=== PATIENT | male | born 1975 | race Hispanic/Latino ===

== ENCOUNTER → 2019-08-14 | Day surgery (SDC) | payer BC ==
[2019-08-10 16:33] LABS: BASOPHILS # (AUTO) 0.1 (0.0-0.1); BASOPHILS % 0.6 % (0.0-1.0); EOSINOPHILS # (AUTO) 0.1 (0.0-0.4); EOSINOPHILS % 1.8 % (0.0-6.0); HEMATOCRIT 44.7 % (38.2-49.6); HEMOGLOBIN 15.3 g/dL (14.0-18.0); LYMPHOCYTES # (AUTO) 2.6 (1.0-3.2); LYMPHOCYTES % 33.2 % (18.0-39.1); MEAN CORPUSCULAR HEMOGLOBIN 28.2 pg (28-32); MEAN CORPUSCULAR HGB CONC 34.2 g/dL (31-35); MEAN CORPUSCULAR VOLUME 82.5 fL (81-99); MONOCYTES # (AUTO) 0.5 (0.2-0.8); NEUTROPHILS # (AUTO) 4.5 (2.1-6.9); PLATELET COUNT 270 x10e3/uL (140-360); RED BLOOD COUNT 5.42 x10e6/uL (4.3-5.7); RED CELL DISTRIBUTION WIDTH 12.8 % (11.7-14.4)
[2019-08-10 16:49] LABS: ANION GAP 14.3 mmol/L (8-16); BLOOD UREA NITROGEN 14 mg/dL (7-26); BUN/CREATININE RATIO 15 (6-25); CALCIUM 9.4 mg/dL (8.4-10.2); CARBON DIOXIDE 28 mmol/L (22-29); CHLORIDE 103 mmol/L (98-107); CREATININE, SERUM 0.95 mg/dL (0.72-1.25); EST GLOMERULAR FILTRATION RATE > 60 ML/MIN (60-); GLUCOSE 97 mg/dL (74-118); POTASSIUM 4.3 mmol/L (3.5-5.1); SODIUM 141 mmol/L (136-145)
--- NOTE | 2019-08-10 17:19 | Diagnostic Imaging Report ---
EXAMINATION: CHEST 2 VIEWS INDICATION: Pre-operative COMPARISON: None FINDINGS: LINES/TUBES:None LUNGS:The lungs are well-inflated. No focal consolidation or pulmonary edema. PLEURA:No pleural effusion or pneumothorax. MEDIASTINUM:The cardiomediastinal silhouette appears normal in size and shape. BONES/SOFT TISSUES:No acute osseous injury. ABDOMEN:No free air under the diaphragm. IMPRESSION: No focal pneumonia or pulmonary edema. Signed by: Ginger Park MD on 08/10/2019 5:17 PM
[~2019-08-14] MED LIST: ACETAMINOPHEN 1000 MG/100 ML IV ONE; ALBUTEROL SULF 0.083% NEB SOLN 3 ML NEB ONE; AMLODIPINE BESYL5 MG PO; BUPIVACAINE HCL 0.5% INJ 30 ML VIAL INJ ONE; CLINDAMYCIN PHOS 900MG/ 50ML 50 ML IV ONE; DEXAMETHASONE SOD PHOS INJ 4 MG/ML VIAL ONE; FENTANYL CITRATE/PF 100MCG/2 ML INJ ONE; FLUTICASONE INH; IBUPROFEN 800MG/ 200ML 200 ML IV ONE; LIDOCAINE HCL 2% LOCAL INJ 5 ML SDV VIAL INJ ONE; LOSARTAN POTASS25 MG PO; MIDAZOLAM HCL 2 MG/2 ML VIAL ONE; MORPHINE SULFATE INJ 10 MG/ML ONE; NEOSTIGMINE 1 MG/ML 10ML VIAL ONE; ONDANSETRON HCL INJ 2MG/ML 2ML 2 MG/ML VIAL ONE; PROPOFOL IV EMULSION 10 MG/ML 20 ML VIAL ONE; SEVOFLURANE INHAL SOLN 250 ML PEN BTL ONE
--- OUTSIDE RECORDS SUMMARY | 2019-08-14 05:45 | XMS REPORT ---
Author Author [facility] Address Unknown Phone Unavailable Care Team Providers Care Civil Attorney Name Role Phone NICK DUFFY Unavailable Unavailable Problems This patient has no known problems. Allergies, Adverse Reactions, Alerts This patient has no known allergies or adverse reactions. Medications This patient has no known medications. Results Test Description Test Time Test Comments Text Results Atomic Results Result Comments CHEST 2 VIEWS 2019-08-10 17:16:00 [place] [address] Patient Name: JEANA ROSE JR MR #: [id number] : 1975 Age/Sex: 44/M Req #: [id number] Adm Physician: Ordered by: NICK DUFFY DPM Report #: [id number] Location: OR Room/Bed: Procedure: [id number] DX/CHEST 2 VIEWS Exam Date: 08/10/19 Exam Time: 1615 REPORT STATUS: Signed EXAMINATION: CHEST 2 VIEWS INDICATION: Pre-operative COMPARISON: None FINDINGS: LINES/TUBES:None LUNGS:The lungs are well-inflated. No focal consolidation or pulmonary edema. PLEURA:No pleural effusion or pneumothorax. MEDIASTINUM:The cardiomediastinal silhouette appears normal in size and shape. BONES/SOFT TISSUES:No acute osseous injury. ABDOMEN:No free air under the diaphragm. IMPRESSION: No focal pneumonia or pulmonary edema. Signed by: Shelly Park MD on 08/10/2019 5:17 PM Dictated By: SHELLY PARK MD 16 Transcribed By: DAR on 08/10/191716 COPY TO: NICK DUFFY DPM
[2019-08-14 12:20] VITALS: BP 150/94
--- NOTE | 2019-08-19 20:29 | Operative Report ---
DATE OF PROCEDURE: 08/14/2019 SURGEON: Preston Zhang DPM ROOM NUMBER: [facility]. 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 TITLE OF THE OPERATION: Triple arthrodesis of the left foot with repair of the posterior tibial tendon, left foot. ANESTHESIA: General endotracheal. HEMOSTASIS: A left thigh tourniquet at 350 mmHg. PROCEDURE IN DETAIL: The patient was taken to the operating room in a mildly sedated state, placed on the operating table in supine position. Following induction of general anesthetic, left lower extremity was elevated to 60 degrees to exsanguinate before inflating the pneumatic thigh tourniquet to 350 mmHg to create hemostasis. Left lower extremity was placed on the operating table prior to performing the following procedure. Procedure #1: Triple arthrodesis of the left foot. The incision was placed along the subtalar joint extending to the talonavicular joint on the medial aspect of the left foot. The incision was deepened via sharp and blunt dissection to the level of the posterior tibial tendon structure, which was noted to be ruptured and significantly hypertrophic. This was reflected from harm's way and the posterior facet of the subtalar joint was identified and all articular cartilage was removed. The bone was denuded, drilled, and fish-scaled for fusion. The talonavicular joint was similarly prepared. These areas were then irrigated with copious amounts of sterile saline solution and all fragments were removed from the wound including bone and cartilage. Utilizing fluoroscopy, the appropriate mild valgus positioning of the posterior heel was dialed in and positioned utilizing a 7-0 cannulated screw first with K-wire fixation, then cannulated screw fixation. The calcaneus was fused to the talus. At this point, the talonavicular joint having been previously prepped was similarly fused utilizing two 4.5 cancellous bone screws. At this point, the lateral aspect of the foot was evaluated, noted to be arthritic and subluxed as well. A lateral incision was placed and all superficial bleeders were electrocoagulated. The neurovascular structures were retracted from harm's way and the calcaneocuboid joint was denuded of all significant hypertrophic bone arthritic cartilage and fish-scaled and drilled appropriately. This joint was then approximated and pinned with a K-wire utilizing study fixation. Two 15 mm bone skinny were used to fixate the lateral calcaneocuboid joint. This having been accomplished, the area was once again irrigated. Attention was directed back to the medial aspect of the foot where the posterior tibial tendon was noted to be significantly hypertrophic. It was denuded of all inflammatory tissue and repaired with #2 FiberWire. This having been accomplished and reimplantation having been achieved along with all underlying superficial and deep bleeders electrocauterized, deep closure was 3-0 Vicryl, subcutaneous closure with 4-0 Vicryl, and skin closure for both medial and lateral wounds with 4-0 nylon. The areas of surgery were blocked with 0.5 Marcaine and released the pneumatic thigh tourniquet. It showed a normal hyperemic flush to all digits of the left foot. The patient left the operating room with vital signs stable in apparent satisfactory condition, having tolerated both anesthetic and procedure very well. DONNA Pérez/MILLER /[id number]
== END | disposition home or self-care (01) ==
LOC: OR 05:41
PROVIDERS: ATTEND Podiatrist Foot Surgery
DX: M19.072 Primary osteoarthritis, left ankle and foot (principal); M67.874 Other specified disorders of tendon, left ankle and foot; M21.6X2 Other acquired deformities of left foot; G47.33 Obstructive sleep apnea (adult) (pediatric); E11.9 Type 2 diabetes mellitus without complications; I10 Essential (primary) hypertension; J45.909 Unspecified asthma, uncomplicated; B19.20 Unspecified viral hepatitis C without hepatic coma; E66.01 Morbid (severe) obesity due to excess calories; F17.290 Nicotine dependence, other tobacco product, uncomplicated; Z88.0 Allergy status to penicillin; Z01.810 Encounter for preprocedural cardiovascular examination; Z01.812 Encounter for preprocedural laboratory examination; Z01.818 Encounter for other preprocedural examination
CPT/HCPCS: 28200; 28715; 36415; 71046; 80048; 85025; 93005; C1713 ×2; C1769; J0131; J1100; J2001; J2250; J2270; J2405; J2704; J2710; J3010